=== PATIENT | female | born 1965 | race Caucasian/White ===

== ENCOUNTER → 2017-08-23 | Day surgery (SDC) | payer BC ==
[2013-04-27 20:41] VITALS: BP 123/47
[~2017-08-23] MED LIST: WELLBUTRIN100 MG
== END ==
LOC: MSO 07-19 11:20
DX: Z12.11 Encounter for screening for malignant neoplasm of colon (principal); J45.909 Unspecified asthma, uncomplicated
CPT/HCPCS: 00810; J7120

== ENCOUNTER → 2017-10-05 | Outpatient (CLI) | payer BC ==
[2013-04-27 20:41] VITALS: BP 123/47
== END ==
LOC: RAD 09:29
DX: M25.561 Pain in right knee (principal); M25.762 Osteophyte, left knee

== ENCOUNTER → 2017-10-12 | Outpatient (CLI) | payer BC ==
[2013-04-27 20:41] VITALS: BP 123/47
== END ==
LOC: RAD 07:02
DX: S83.281A Other tear of lateral meniscus, current injury, right knee, initial encounter (principal)

== ENCOUNTER → 2018-07-06 | Outpatient (CLI) | payer BC ==
[2013-04-27 20:41] VITALS: BP 123/47
== END ==
LOC: RAD 10:38
DX: S92.354A Nondisplaced fracture of fifth metatarsal bone, right foot, initial encounter for closed fracture (principal)